=== PATIENT | male | born 1935 | race Native Hawaiian/Other Pacific Islander ===

== ENCOUNTER 2016-12-28 08:02 | Outpatient (CLI) | payer MEDICARE, OTHER ==
--- NOTE | 2016-12-28 10:04 | XRay Report ---
ABDOMEN RADIOGRAPH INDICATION: Colitis, tarry stool. COMPARISON: None similar at this institution. 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 Right groin hernia repair andrey as well. Nonobstructive bowel gas pattern. Colonic stool noted. Intact bones. CONCLUSION: Inadequate colonic prep for barium enema with few other findings, as above. Patient given appropriate instructions and rescheduled. Thank you for the opportunity to participate in this patient's care.
== END 2016-12-28 08:03 | disposition home or self-care (01) ==
LOC: FLUORO 08:02
PROVIDERS: ATTEND Internal Medicine
DX: K52.9 Noninfective gastroenteritis and colitis, unspecified (principal); R19.5 Other fecal abnormalities; I10 Essential (primary) hypertension; Z90.49 Acquired absence of other specified parts of digestive tract
CPT/HCPCS: 74000

== ENCOUNTER 2016-12-31 10:03 | Outpatient (CLI) | payer MEDICARE, OTHER | END 2016-12-31 10:04 | disposition home or self-care (01) | LOC: LABHHL 10:03 | PROVIDERS: ATTEND Internal Medicine | DX: J45.909 Unspecified asthma, uncomplicated (principal); E78.2 Mixed hyperlipidemia; N40.0 Benign prostatic hyperplasia without lower urinary tract symptoms; I10 Essential (primary) hypertension; Z79.899 Other long term (current) drug therapy | CPT/HCPCS: 36415; 80061 ==

== ENCOUNTER 2017-01-07 08:10 | Outpatient (CLI) | payer MEDICARE, OTHER ==
--- NOTE | 2017-01-07 10:48 | Fluoroscopy Report ---
DOUBLE CONTRAST BARIUM ENEMA INDICATION: Colitis, tarry stool. COMPARISON: None similar. FINDINGS: Preliminary radiograph demonstrates a nonobstructive bowel gas pattern. Right inguinal hernia andrey. Probable cholecystectomy clips. Using fluoroscopic guidance, the entire colon filled in retrograde fashion with barium and air. The colonic caliber and mucosal pattern are normal in appearance. No constricting lesions or fixed intraluminal masses identified. Reflux identified into the terminal ileum and appendix. CONCLUSION: Unremarkable air contrast barium enema with few other findings, as above. Thank you for the opportunity to participate in this patient's care.
== END 2017-01-07 08:11 | disposition home or self-care (01) ==
LOC: FLUORO 08:10
PROVIDERS: ATTEND Internal Medicine
DX: K52.9 Noninfective gastroenteritis and colitis, unspecified (principal); I10 Essential (primary) hypertension; Z98.890 Other specified postprocedural states
CPT/HCPCS: 74280